=== PATIENT | male | born 1990 | race Hispanic/Latino ===

== ENCOUNTER 2017-09-25 18:06 | Emergency (ER) | payer BC ==
[2017-09-25 18:42] VITALS: BP 133/84; PULSE 85; RESP 18; TEMP 99.2; O2SAT 99
--- NOTE | 2017-09-25 19:13 | ED PDOC ---
HPI: Psych/Substance Abuse Time Seen by Provider: 09/25/17 18:52 Chief Complaint (Nursing): Psychiatric Evaluation Chief Complaint (Provider): Psychiatric Evaluation History Per: Patient History/Exam Limitations: no limitations Onset/Duration Of Symptoms: Other (months) Current Symptoms Are (Timing): Still Present Additional Complaint(s): 27 year old male presents to the ED for a psychiatric evaluation. Patient states that the past few months, he has been feeling depressed and anxious, saying "I feel like I'm having a mental breakdown," worsening the last four weeks. He reports difficulty sleeping and concentrating at work. Initially, he attributed these symptoms to stress from work, but now he no longer feels that way. Additionally, he notes he has been having problems with irritable bowel syndrome lately, and is frustrated that no one can find the cause, reporting having a normal CT abdomen and capsule endoscopy. Of note, patient reports he used to be on medication for anxiety, but no longer is. Otherwise, (-) suicidal / homicidal ideation, (-) visual / auditory hallucinations, (-) history of suicide attempts PMD: none provided Past Medical History Reviewed: Historical Data, Nursing Documentation, Vital Signs Vital Signs: Last Vital Signs Temp 99.2 F 09/25/17 18:39 Pulse 85 09/25/17 18:39 Resp 18 09/25/17 18:39 BP 133/84 09/25/17 18:39 Pulse Ox 99 09/25/17 18:39 - Medical History PMH: Anxiety, Depression Comment Only: HTN (BP runs high) Other PMH: Irritable bowel syndrome; ADHD - Surgical History Surgical History: Endoscopy (capsule) - Family History Family History: States: Unknown Family Hx - Social History Current smoker - smoking cessation education provided: No Alcohol: Social Drugs: Cannabis - Allergies Allergies/Adverse Reactions: Allergies Allergy/AdvReac Type Severity Reaction Status Date / Time meat Allergy RASH Uncoded 09/25/17 18:42 soy Allergy PAIN Uncoded 09/25/17 18:42 Review of Systems ROS Statement: Except As Marked, All Systems Reviewed And Found Negative Psych: Positive for: Anxiety, Depression. Negative for: Suicidal ideation (or homicidal), Other (visual / auditory hallucinations) Physical Exam - Reviewed Nursing Documentation Reviewed: Yes Vital Signs Reviewed: Yes - Physical Exam Comments: GENERAL APPEARANCE: Patient is awake, alert, oriented x 3, in no acute distress. Avoids eye contact with examiner. SKIN: Warm, dry; (-) cyanosis EYES: (-) conjunctival pallor, (-) scleral icterus, (-) nystagmus. ENMT: Mucous membranes moist. Airway patent: (-) stridor. NECK: Supple, FROM (-) tenderness, (-) stiffness HEART AND CARDIOVASCULAR: (-) irregularity; (-) murmur, (-) gallop. CHEST AND RESPIRATORY: (-) rales, (-) rhonchi, (-) wheezes; breath sounds equal. Respirations even and nonlabored. ABDOMEN: Soft, (-) distention, (-) tenderness, (-) guarding. NEURO AND PSYCH: Mental status as above. 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 Pupils equal and reactive; EOMI; (-) facial asymmetry; tongue and uvula midline. Strength symmetric. Gait steady. - ECG O2 Sat by Pulse Oximetry: 99 (RA) Pulse Ox Interpretation: Normal Medical Decision Making Medical Decision Making: Time: 18:53 Initial Impression: psychiatric evaluation Initial Plan: --Crisis evaluation 19:23 community support worker at bedside. 2054 Per crisis evaluation, patient to be discharged with the diagnosis of anxiety per Dr Silva. Patient to follow up with personal psychiatrist. On re-evaluation, patient offers no additional complaints at this time. On exam , patient remains AAOx3, in no acute distress. On exam, neck is supple, lungs CTA, cardiac RRR, abdomen is soft and non-tender, neuro exam shows no focal findings. VSS, stable for discharge. Diagnostic results d/w the patient in great detail. Dx of anxiety d/w the patient. Based on history, exam and diagnostic results plan will be for discharge and outpatient follow up with psych. Advised to follow up with primary care physician/psych in 1-2 days without fail. Return to the emergency room at any time for any new or worsening symptoms. Patient states he fully agrees with and understands discharge instructions. States that he agrees with the plan and disposition. Verbalized and repeated discharge instructions and plan. I have given the patient opportunity to ask any additional questions. Scribe Attestation: Documented by Maryanne Smart, acting as a scribe for Aiyana Chavarria PA-C. Provider Scribe Attestation: All medical record entries made by the Scribe were at my direction and personally dictated by me. I have reviewed the chart and agree that the record accurately reflects my personal performance of the history, physical exam, medical decision making, and the department course for this patient. I have also personally directed, reviewed, and agree with the discharge instructions and disposition. Disposition - Clinical Impression Clinical Impression: Anxiety - Patient ED Disposition Is Patient to be Admitted: No Counseled Patient/Family Regarding: Diagnosis, Need For Followup - Disposition Disposition: Routine/Home Disposition Time: 20:55 Condition: STABLE Additional Instructions: FOLLOW UP WITH PMD/PSYCHIATRIST IN 1-2 DAYS INSTRUCTED BY CRISIS RETURN TO ED WITH ANY NEW OR WORSENING SYMPTOMS. Instructions: Anxiety, Adult (DC) Forms: [employer] (Persian) Print Language: ESTONIAN - POA Present On Arrival: None
== END 2017-09-25 21:25 | disposition home or self-care (01) ==
LOC: H.ER 18:06
DX: F41.9 Anxiety disorder, unspecified (principal)